=== PATIENT | female | born 2005 | race Caucasian/White ===

== ENCOUNTER 2023-07-04 13:47 | Outpatient (CLI) | payer OTHER, SELFPAY ==
[2023-07-04 19:27] LABS: Chlamydia DNA Amplified* Not Detected (No Detected); GC DNA Amplified* Not Detected (No Detected)
== END 2023-07-04 13:48 | disposition home or self-care (01) ==
PROVIDERS: PCP Family Medicine; Visit Provider Obstetrics & Gynecology
DX: R10.2 Pelvic and perineal pain (principal); N39.0 Urinary tract infection, site not specified; B96.20 Unspecified Escherichia coli [E. coli] as the cause of diseases classified elsewhere; Z11.3 Encounter for screening for infections with a predominantly sexual mode of transmission
CPT/HCPCS: 87086; 87186; 87491; 87591

== ENCOUNTER 2023-07-06 15:46 | Outpatient (CLI) | payer OTHER, SELFPAY ==
--- NOTE | 2023-07-06 16:00 | CRLHL7_ITS ---
For Patients: As a result of the Century Cures Act, medical imaging exams and procedure reports are released immediately into your electronic medical record. You may view this report before your referring provider. If you have questions, please contact your health care provider. INDICATION: ABNORMAL UTERINE BLEEDING COMPARISON: none TECHNIQUE: 2D aaron scale and color Doppler images were acquired of the pelvis using a transabdominal and transvaginal approach. FINDINGS: Sonographic images demonstrate a normal size and smooth outer contour of the uterus. Uterus measures 8.0 cm in length by 3.3 cm in AP diameter by 4.1 cm in transverse dimension. The myometrium has a normal uniform echotexture. The endometrial lining appears normal and measures 3 mm in composite thickness. The right ovary measures 4.8 x 2.5 x 4.1 cm in size and the left ovary measures 3.7 x 2.1 x 3.2 cm. The ovaries demonstrate normal arterial and venous blood flow on color Doppler analysis. Simple cyst right ovary measuring 3.9 x 2.1 x 3.6 cm. There are no suspicious fluid collections within the cul-de-sac. IMPRESSION: Simple right ovarian cyst measures 3.9 cm. Endometrial thickness 3 millimeters. Dictated by Davi Avendaño MD @ 07/07/2023 10:17:29 AM (Electronically Signed)
== END 2023-07-06 15:47 | disposition home or self-care (01) ==
LOC: US 15:48
PROVIDERS: PCP Family Medicine; Visit Provider Obstetrics & Gynecology
DX: N93.9 Abnormal uterine and vaginal bleeding, unspecified (principal); N83.201 Unspecified ovarian cyst, right side; R10.2 Pelvic and perineal pain
CPT/HCPCS: 76830; 76856

== ENCOUNTER 2023-07-20 14:14 | Outpatient (CLI) | payer OTHER, SELFPAY | END 2023-07-20 14:15 | disposition home or self-care (01) | LOC: NFLDREF 07-27 15:17 | PROVIDERS: PCP Family Medicine; Referring Provider Family Medicine; Visit Provider Obstetrics & Gynecology | DX: N93.9 Abnormal uterine and vaginal bleeding, unspecified (principal); Z13.220 Encounter for screening for lipoid disorders; Z13.1 Encounter for screening for diabetes mellitus | CPT/HCPCS: 80061; 82947; 83498; 83525; 84146; 84270; 84402; 84403; 84443 ==

== ENCOUNTER 2023-09-30 22:52 | Emergency (ER) | payer OTHER, SELFPAY ==
[2023-09-30 22:57] VITALS: BP 112/68; PULSE 90; RESP 20; TEMP 36.3; O2SAT 100; BMI 22.1
--- NOTE | 2023-09-30 23:24 | ED_ITS ---
HPI - General Adult General Chief complaint: Head Injury/Pain Stated complaint: head injury Time Seen by Provider: 09/30/23 23:25 History of Present Illness HPI narrative: Pt is coming in for evaluation of headache and nausea. Pt was hit by the corner of the door today while at work. Pt reported she is sensitive to the light and noise and is having brain fog. She feels that the headache is similar to the one she got it from her last concussion. Her last concussion was in 2020. She had 2 concussions in that year that were 4 months apart. 18-year-old young woman presenting to the emergency department concern of headache in history of concussion. Shortly before arrival to the emergency department was at work and caring a sign in from the back and was struck in the back of the head by the door. Apparently it was quite a crack of noise. Since that time has been feeling in a fog. Has increasing headache. Does have a history of concussions last in apparently 2020. Ultimately did need to receive treatment from the vestibular clinic locally. Has tended apparently to be hit in the back of the head. I believe the last injury was while doing a back bend in her room and her arms gave way and she fell striking the back of her head on the floor. 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 She is quite nauseated now. Has not vomited. She is sensitive to light and sound. Feels a waviness of sorts to her vision and suspects herself to be discoordinated somewhat. Does not recount loss of consciousness but does not recall precisely where in the back of the head she was hit. Underlying history also of migraines with sumatriptan available. Has also had cochlear hydrops. Related Data Home Medications Medication Instructions Recorded Confirmed bupropion HCl 300 mg 24 hr tablet, 300 mg PO DAILY 07/04/23 07/04/23 extended release dextroamphetamine-amphetamine 5 mg 1 tab PO BID 07/04/23 07/04/23 tablet dextroamphetamine-amphetamine ER 5 cap PO 07/04/23 07/04/23 mg 24hr capsule,extend release fluoxetine 40 mg capsule 40 mg PO DAILY 07/04/23 07/04/23 Allergies Allergy/AdvReac Type Severity Reaction Status Date / Time No Known Drug Allergies Allergy Verified 07/04/23 09:36 Review of Systems Status of ROS: Reports: 6 or more systems reviewed and unremarkable except as noted in History and below [facility] PFS Family History (Updated 07/25/23 @ 16:13 by Ros Ross) Paternal Grandmother Colon cancer Father High blood pressure High cholesterol Diabetes Uncle Diabetes Grandfather Diabetes Social History Smoking Status: Never smoker Do you use any of these nicotine containing products: None Second hand tobacco smoke exposure: No How often do you have a drink containing alcohol: never AUDIT-C Alcohol total score: 0 Non-prescribed substance use: denies use service: No Exam Narrative: Exam Narrative: Accompanied here by father. Pleasant. Carefully casually groomed. Speaking fluidly. Pupils are equal and briskly reactive; in the dimmer light are dilated to 7 mm. Extraocular movements are intact. Do not appreciate nystagmus. External ear canals are free of fluid. He had appears to be atraumatic. Hard to reproduce this area of pain. Neck is supple and nontender. Back nontender. Intact point to point. Appears to feel a little woozy with this. Negative Romberg's. Transitions out of bed a little gingerly. Tandem gait is notably unsteady but she is able to catch herself, maintains the line. Const: Vital Signs, click to edit/add: Vital Signs - 24 hr 09/30/23 22:57 Temperature 97.4 F L Pulse Rate [Left P ulse Oximeter] 90 Respiratory Rate 20 Blood Pressure [Le ft Upper Arm] 112/68 Pulse Oximetry 100 Oxygen Delivery Me thod Room Air Documenting provider has reviewed patient's vital signs: yes Course Vital Signs Vital signs: Initial Vital Signs Temperature 97.4 F L 09/30/23 22:57 Temperature Source Temporal Artery Scan 09/30/23 22:57 Pulse Rate 90 09/30/23 22:57 Pulse Rhythm Regular 09/30/23 22:57 Pulse Strength 3+ Normal 09/30/23 22:57 Respiratory Rate 20 09/30/23 22:57 Blood Pressure 112/68 09/30/23 22:57 Blood Pressure Mean 82 09/30/23 22:57 Blood Pressure Position Sitting 09/30/23 22:57 Pulse Oximetry 100 09/30/23 22:57 Oxygen Delivery Method Room Air 09/30/23 22:57 Vital Signs Temperature 97.4 F L 09/30/23 22:57 Pulse Rate 90 09/30/23 22:57 Respiratory Rate 20 09/30/23 22:57 Blood Pressure 112/68 09/30/23 22:57 Pulse Oximetry 100 09/30/23 22:57 Oxygen Delivery Method Room Air 09/30/23 22:57 Temperature 97.4 F L 09/30/23 22:57 Pulse Rate 90 09/30/23 22:57 Respiratory Rate 20 09/30/23 22:57 Blood Pressure 112/68 09/30/23 22:57 Pulse Oximetry 100 09/30/23 22:57 Oxygen Delivery Method Room Air 09/30/23 22:57 Medications Administered Medications: Discontinued Medications Generic Name Dose Route Start Last Admin Trade Name Steven PRN Reason Stop Dose Admin Diazepam 3 mg 09/30/23 23:40 10/01/23 00:09 Diazepam 5 Mg/Ml Inj IV 09/30/23 23:41 3 mg ONCE ONE Administration Sodium Chloride 1,000 mls @ 1,000 mls/hr 09/30/23 23:40 10/01/23 00:56 0.9 % Sodium Chloride 1000 Ml IV 10/01/23 00:39 Infused .Q1H ONE Infusion Ketorolac Tromethamine 30 mg 09/30/23 23:40 10/01/23 00:07 Ketorolac 30 Mg/Ml Inj IVP 09/30/23 23:41 30 mg ONCE ONE Administration Ondansetron HCl 4 mg 09/30/23 23:40 10/01/23 00:06 Ondansetron 2 Mg/Ml Inj IVP 09/30/23 23:41 4 mg ONCE ONE Administration Medical Decision Making MDM Narrative Medical decision making narrative: Does appear to be experiencing symptoms consistent with concussion. I would suspect this is more noticeable in someone who has already had concussions. I think head imaging available here is quite low yield. Discussed and agreed. Would like symptom relief from headache and nausea. IV will be established. Normal saline hydration along with Zofran and ketorolac and some Valium for the vestibular symptoms. I am anticipating handoff at change of shift pending improvement in symptoms. On my reassessment is mildly improved. I do not think has seen full affected medications and still has about a 3rd of IV fluids remaining. Reassessed once more at end of IV fluid. Still with significant headache. Has some brow component that would associate with her migraines. Discussed next options for pain really and settled on low-dose ketamine infusion. Had discussed also use of dexamethasone though while with migraine history, uncertain of indication in the setting of concussion. Discharge Plan Discharge Clinical Impression: Concussion, Closed head injury Patient Disposition: Home w/ Parent or Adult Condition: Improved Additional Instructions: Do focus on hydration. Rest. These symptoms can be created I think sometimes by a some degree of trigger point impact but I do certainly have concern, as do you, that a concussion is present. Particularly important would be to avoid activities where you might hit your head again, at least over the next month. Signs or symptoms of a concussion might be nausea or headache upon exertion which can also be an indication to back off that level of activity and reassess in a week.? Concussion can also be represented by smoldering nausea or smoldering headache, difficulty with concentration, mood lability, general somnolence, sense of persistent fog or dizziness/lightheadedness.? If these symptoms are becoming apparent and continuing beyond 7-10 days, be re-evaluated for further recommendations. I think you will likely end up having to return to this vestibular clinic or some other concussion rehabilitation; locally also is the [facility] through [place]. Be seen sooner for marked increase in persistent headache, new weakness, repeated vomiting, worsening vision, markedly worse dizziness. Zofran from [facility]. Can take up to 800 mg of ibuprofen or up to 1000 mg of acetaminophen per dose. Alternative to the ibuprofen might be up to 500 mg of naproxen 2 times daily. Prescriptions: No Action fluoxetine 40 mg capsule 40 mg PO DAILY dextroamphetamine-amphetamine 5 mg tablet 1 tab PO BID dextroamphetamine-amphetamine 5 mg capsule,extended release 24hr PO bupropion HCl 300 mg tablet extended release 24 hr 300 mg PO DAILY Follow Up/Referrals: Luzma Hinton MD [Primary Care Provider] - Stand Alone Forms: [employer] Info Instructions
[2023-10-01] MEDS: 0.9 % SODIUM CHLORIDE 1000 ml 1,000 ML IV (00:05)
[2023-10-01] MEDS: ONDANSETRON 2 MG/ML inj 4 MG IVP (00:06)
[2023-10-01] MEDS: KETOROLAC 30 MG/ML inj IVP (00:07)
[2023-10-01] MEDS: diazePAM 5 MG/ML inj 3 MG IV (00:09)
--- OUTSIDE RECORDS SUMMARY | 2023-10-01 00:14 | XMS_ITS | Clinical Summary ---
Author Name Unknown Organization [facility] Address [place], [place] [address] Care Team Providers Care Oracle Solutions Architect Name Role Phone Luzma Hinton MD Primary Care Provider Cyrus Barclay GYNAECOLOGICAL ONCOLOGIST Unavailable [phone] Allergies Active Allergy Reactions Criticality Noted Date Comments House Dust *Unknown 08/18/2022 congestion, fever, red eyes. 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 Give at minimum 2hrs apart. Max Dose: 200mg per 24hrs. 10 Tablet 3 06/16/2022 Active buPROPion (WELLBUTRIN XL) 300 mg Extended-Release tabletIndications:Att ention deficit hyperactivity disorder (ADHD), unspecified ADHD type,Major depressive disorder, recurrent episode, mild (HC) Take 1 Tablet (300 mg) by mouth once daily. 90 Tablet 1 08/14/2023 Active dextroamphetamine-amp hetamine (Adderall XR) 5 mg Extended-Release capsuleIndications:At tention deficit hyperactivity disorder (ADHD), unspecified ADHD type Take 1-2 Capsules (5-10 mg) by mouth every morning. 60 Capsule 10/16/2023 Active FLUoxetine (PROZAC) 40 mg capsuleIndications:Ge neralized anxiety disorder with panic attacks,Major depressive disorder, recurrent episode, mild (HC) Take 1 Capsule (40 mg) by mouth once daily. 90 Capsule 1 08/14/2023 Active dextroamphetamine-amp hetamine (Adderall XR) 5 mg Extended-Release capsuleIndications:At tention deficit hyperactivity disorder (ADHD), unspecified ADHD type Take 1-2 Capsules (5-10 mg) by mouth every morning 60 Capsule 08/16/2023 Active dextroamphetamine-amp hetamine (AdderalL) 5 mg tabletIndications:Att ention deficit hyperactivity disorder (ADHD), unspecified ADHD type Take 1-2 tablets daily in the afternoon 60 Tablet 10/16/2023 Active dextroamphetamine-amp hetamine (ADDERALL) 5 mg tabletIndications:Att ention deficit hyperactivity disorder (ADHD), unspecified ADHD type Take 1-2 tablets daily in the afternoon. 60 Tablet 08/16/2023 Active Active Problems Problem Noted Date Diagnosed Date Generalized anxiety disorder with panic attacks 07/31/2023 Major depressive disorder, recurrent, moderate 0 07/31/2023 Meniere's disease, left ear 08/31/2020 Attention deficit hyperactivity disorder (ADHD) 10/09/2018 Hypermetropia, bilateral 05/31/2018 Migraine 01/16/2018 Asthma 01/23/2017 Encounters Date Type Department Care Team Description 08/29/2023 11:30 AM CDT Telemedicine [facility] [address] [place] [phone] Cyrus Barclay LICSW [facility] 08/29/2023 Travel 08/14/2023 9:30 AM CDT Telemedicine [facility] [address] [place] [address] Darlin Rodriguez, [place] Medication Management; [facility] ([place]) 08/14/2023 Travel 08/08/2023 9:30 AM CDT Telemedicine [facility] [address] [place] [address] [facility]/08/[facility]23 Travel 07/31/2023 9:30 AM PIPELINER Telemedicine [facility] [address] [place] [phone] Cyrus Barclay, [facility] Mental Health Intake 07/31/2023 Travel 07/06/2023 Orders Only [facility] Scanner 1 scan: (1-Ord) [facility] PELVIC TA AND TV , 07/06/2023 from Last 3 Months Immunizations Name Administration Dates Next Due COVID-19 Vaccine Spikevax (M oderna 50mcg/0.5mL) 12YO+ [id number] Formula PF 04/05/2023 COVID-19 vaccine (Pfizer-Bio NTech 30mcg/0.3mL) PF, MDV 05/17/2021,08/16/2020 DTaP 02/12/2007,03/09/2004 [id number] (Pediarix) 2003,2003,1 HIB PRP-OMP (PedvaxHIB) 03/09/2004,2003, HPV 9 (Gardasil 9) 07/24/2015,02/18/2015 Hepatitis A (Peds) 01/14/2014,03/04/2013 Human Papilloma Virus Vaccine 01/01/2015 Inactivated Polio Vaccine 02/12/2007 Influenza A (H1N1), Live Intranasal 06/23/2009,1 07/26/2008 Influenza Virus, Unspecified 02/26/2021, 03/04/2013,02/17/2012,04/08 Influenza, IIV3 (Age >=3 years) 05/26/20 10,02/12/2009,03/03/2008,03/24,04/08/2006,07/12/2004,03/20/2004 Influenza, IIV4 04/05/2023, 2,03/10/2021,02/03,01/30/2019,02/20/2018,03/03/2017 ,02/13/2016,02/18/2015,03/15/2014 MMR 02/16/2004 MMRV 02/12/2007 Meningococcal Vaccine (Menactra) 01/14/2014 Meningococcal Vaccine (Menveo) 01/30/2019 Pneumococcal Conj 20-valent (Prevnar 20) 02/21/2022 Pneumococcal conj 7-Valent (Prevnar 7) 1 ,2003,2003,03/11 Tdap 01/14/2014 Tuberculin Skin Test, Unspecified 2020,12/29/2020,02/17/2012,06/14 Varicella Vaccine 02/16/2004 Social History Tobacco Use Types Packs/Day Years Used Date Smoking Tobacco: Never Smokeless Tobacco: Never Tobacco Cessation:Counseling Given: Not Answered Alcohol Use Standard Drinks/Week Comments Yes 0 (1 standard drink = 0.6 oz pur e alcohol) 1-2 drinks in a 2 week period. PHQ-2 Answer Date Recorded PHQ-2 TOTAL SCORE 2 08/29/2023 Social Connections Answer Date Recorded Frequency of Communication with Friends and Fami ly 0 01/23/2023 Financial Resource Strain Answer Date R ecorded Difficulty of Paying Living Expenses 3 01/23/2023 Difficulty of Paying Living Expenses Not on file 01/23/2023 Food Insecurity Answer Date Recorded Worried About Running Out of Food in the Last Ye ar 1 01/23/2023 Transportation Needs Answer Date Record ed Lack of Transportation (Medical) 1 01/23/2023 Housing Stability Answer Date Recorded Unable to Pay for Housing in the Last Year 1 01/23/2023 Sex and Gender Information Value Date Recorded Sex Assigned at Not on file Gender Identity Not on file Sexual Orientation Not on file Obstetrics History Last Filed Vital Signs Vital Sign Reading Time Taken Comments Blood Pressure 117/64 06/12/2023 11:05 AM PIPELINER Pulse 69 06/12/2023 11:05 AM PIPELINER Temperature - - Respiratory Rate - - Oxygen Saturation 98% 06/16/2022 3:12 PM PIPELINER Inhaled Oxygen Concentration - - Weight 56.2 kg (124 lb) 06/12/2023 11:05 AM PIPELINER Height 160 cm (5' 3) 06/12/2023 11:05 AM PIPELINER Body Mass Index 21.97 06/12/2023 11:05 AM PIPELINER Plan of Treatment Upcoming Encounters Date Type Department Care Team (Late st Contact Info) Description 10/16/2023 9:30 AM CDT Telemedicine [facility] [address] [place] [id number] Darlin Rodriguez, [place] [address] [facility] [address] [place] [address] Health Maintenance Due Date Last Done Comments Well Child Check for age 3-20 12/08/2005 HIV for age 15-65 2018 Chlamydia for age 16-24 05/09/2020 05/09/20 (Verified in Care Everywhere or Patient Record) Hepatitis C screening for age 18-79 2021 Tetanus booster 01/15/2024 01/14/2014 Influenza for age 9-49 01/28/2024 , 02/21/2022, 03/10/2021, Additional history exists BMI (ht and wt on same day) for age 18+ 06/12/2024 06/12/2023, 01/23/2023, 06/16/2022 Depression screening for age 12+ 08/28/2024 08/29/2023, 08/14/2023, 08/08/2023, Additional history exists Tdap Completed 01/14/2014 HPV series for age 9-26 Completed 07/24/19 16, 02/18/2015, 01/01/2015 Meningococcal series for age 11-21 Completed 01/30/2019, 01/14/2014 Pneumococcal series for age 6-64 Aged Out 02/21/2022, 03/09/2004, 2003, Additional history exists No longer eligible based on patient's age to complete this topic COVID-19 vaccine series Completed 04/05/20, 02/21/2022, 05/17/2021, Additional history exists Procedures Procedure Name Priority Date/Time Associated Diagnosis Comments SCAN-ULTRASOUND REPORT 07/06/2023 12:00 AM PIPELINER from Last 3 Months Results * SCAN-ULTRASOUND REPORT (07/06/2023 12:00 AM PIPELINER) Anatomical Region Laterality Modality Other Scanner OTHER from Last 3 Months Care Teams Oracle Solutions Architect Relationship Specialty Start Date End Date Luzma Hinton MD [address] [place] [address] PCP - General Family Practice 06/20/22 Cyrus Barclay, [facility] [address] [place] [address] Mental Health Provider Machine Rope Maker 09/19/23
[2023-10-01] MEDS: KETAMINE 50 MG/0.5 ML 20 MG in 0.9 % SODIUM CHLORIDE 100 ml 100 ML 200.4 MG IVPB (01:08)
== END 2023-10-01 01:48 | disposition home or self-care (01) ==
PROVIDERS: Emergency Provider Family Medicine; PCP Family Medicine
DX: S06.0X0A Concussion without loss of consciousness, initial encounter (principal); W22.8XXA Striking against or struck by other objects, initial encounter
CPT/HCPCS: 96365; 96375; 99284; J1885; J2405; J3360; J3490; J7030

== ENCOUNTER 2024-02-16 01:11 | Emergency (ER) | payer OTHER, SELFPAY ==
[2024-02-16 01:29] VITALS: BP 117/65; PULSE 103; RESP 16; TEMP 37.7; O2SAT 98
[2024-02-16 02:16] LABS: PCR FLU A Negative PCR FLU A (Negative); SARS PCR* POSITIVE SARS-CoV-2 (Negative)
[2024-02-16 02:17] LABS: PCR FLU B Negative PCR FLU B (Negative); PCR RSV Negative PCR RSV (Negative)
--- NOTE | 2024-02-16 02:20 | ED_ITS ---
HPI - General Adult General Chief complaint: Headache/Migraine Stated complaint: headache Time Seen by Provider: 02/16/24 02:20 History of Present Illness HPI narrative: patient has headache and a fever or 100 at home. body aches and a stiff neck. started around 1700. has not taken any Tylenol or ibuprofen for the symptoms. 19-year-old woman presenting to the emergency department concern of headache. Measured a temperature to 100. Generally with body aches in some stiffness in her neck. Symptoms began 7 or 8 hours ago this last evening. No particular exposures noted. No rashes. No vomiting. No diarrhea. Related Data Home Medications ?Medication ?Instructions ?Recorded ?Confirmed bupropion HCl 300 mg 24 hr tablet, 300 mg PO DAILY 07/04/23 07/04/23 extended release dextroamphetamine-amphetamine 5 mg 1 tab PO BID 07/04/23 07/04/23 tablet dextroamphetamine-amphetamine ER 5 cap PO 07/04/23 07/04/23 mg 24hr capsule,extend release fluoxetine 40 mg capsule 40 mg PO DAILY 07/04/23 07/04/23 Allergies Allergy/AdvReac Type Severity Reaction Status Date / Time No Known Drug Allergies Allergy Verified 07/04/23 09:36 Review of Systems Status of ROS: Reports: 6 or more systems reviewed and unremarkable except as noted in History and below PFSH PFSH Family History Paternal Grandmother Colon cancer Father High blood pressure High cholesterol Diabetes Uncle Diabetes Grandfather Diabetes Social History Smoking Status: Never smoker Do you use any of these nicotine containing products: None Second hand tobacco smoke exposure: No How often do you have a drink containing alcohol: never AUDIT-C Alcohol total score: 0 Non-prescribed substance use: denies use service: No Exam Narrative: Exam Narrative: Pleasant. Of good energy but generally seems uncomfortable. Cranial nerves 2- 12 intact. No significant nasopharyngeal congestion. Oropharynx is moist not particularly erythematous. Neck is supple without lymphadenopathy. Sore neck and back musculature generally. Lungs are clear. Heart in elevated rate but regular rhythm. She is not demonstrating any meningeal signs other than headache. Abdomen soft. Skin without apparent rash. Well-perfused. Const: Vital Signs, click to edit/add: Vital Signs - 24 hr 02/16/24 01:29 Temperature 99.8 F H Pulse Rate [Pulse Oximeter] 103 H Respiratory Rate 16 Blood Pressure [Ri ght Upper Arm] 117/65 Pulse Oximetry 98 Oxygen Delivery Me thod Room Air Documenting provider has reviewed patient's vital signs: yes Course Vital Signs Vital signs: Initial Vital Signs Temperature 99.8 F H 02/16/24 01:29 Temperature Source Temporal Artery Scan 02/16/24 01:29 Pulse Rate 103 H 02/16/24 01:29 Respiratory Rate 16 02/16/24 01:29 Blood Pressure 117/65 02/16/24 01:29 Blood Pressure Mean 82 02/16/24 01:29 Blood Pressure Position Sitting 02/16/24 01:29 Pulse Oximetry 98 02/16/24 01:29 Oxygen Delivery Method Room Air 02/16/24 01:29 Vital Signs Temperature 99.8 F H 02/16/24 01:29 Pulse Rate 103 H 02/16/24 01:29 Respiratory Rate 16 02/16/24 01:29 Blood Pressure 117/65 02/16/24 01:29 Pulse Oximetry 98 02/16/24 01:29 Oxygen Delivery Method Room Air 02/16/24 01:29 Temperature 99.8 F H 02/16/24 01:29 Pulse Rate 103 H 02/16/24 01:29 Respiratory Rate 16 02/16/24 01:29 Blood Pressure 117/65 02/16/24 01:29 Pulse Oximetry 98 02/16/24 01:29 Oxygen Delivery Method Room Air 02/16/24 01:29 Medications Administered Medications: Discontinued Medications Generic Name Dose Route Start Last Admin Trade Name Freq PRN Reason Stop Dose Admin Diphenhydramine HCl 12.5 mg 02/16/24 02:31 02/16/24 02:38 Diphenhydramine 50 Mg/Ml Inj IVP 02/16/24 02:32 12.5 mg ONCE ONE Administration Sodium Chloride 1,000 mls @ 1,000 mls/hr 02/16/24 02:31 02/16/24 03:28 0.9 % Sodium Chloride 1000 Ml IV 02/16/24 03:30 Infused .Q1H ONE Infusion Ketorolac Tromethamine 30 mg 02/16/24 02:31 02/16/24 02:38 Ketorolac 30 Mg/Ml Inj IVP 02/16/24 02:32 30 mg ONCE ONE Administration Medical Decision Making MDM Narrative Medical decision making narrative: I would presume viral etiology to myalgias and headache. Can certainly offered treatment/symptom relief. Would screen for COVID influenza considering community prevalence. No red flags otherwise and I do think meningitis unlikely. Rather abrupt onset consistent with viral etiology. Does not seem to have degree of symptoms that I might associate with presenting time for mosquito or tick vector borne illnesses. Would like relief of her symptoms somewhat. Ordered for typical treatment including IV hydration for headache pending swab c ollection results. COVID was positive. I think this is a good explanation for her symptoms. Overall improved with treatment as above. No comorbidities for which to recommend Paxlovid. Medical Records Medical records reviewed: Yes I reviewed the patient's medical records Lab Data Lab results reviewed: Yes I reviewed the patient's lab results Labs: Lab Results 02/16/24 Range/Units 01:28 SARS-CoV-2 (PCR) POSITIVE SARS-CoV-2 A (Negative) Influenza Type A (PCR) Negative PCR FLU A (Negative) Influenza Type B (PCR) Negative PCR FLU B (Negative) RSV (PCR) Negative PCR RSV (Negative) Discharge Plan Discharge Clinical Impression: COVID, Headache Patient Disposition: Home w/ Parent or Adult Condition: Improved Instructions: COVID-19 (Coronavirus Disease 2019) (ED) Additional Instructions: Focus on hydration. While you are not feeling well, try to do some stretching daily. Can take up to 600 mg of ibuprofen or up to 850 mg of acetaminophen per dose. Alternative to the ibuprofen might be up to 375 mg of naproxen 2 times daily. Returns/be seen for worsening and persistent shortness of breath, uncontrolled pain, intractable vomiting or diarrhea or any other symptom of which you have concern. Recommended quarantine is 10 days from 1st day of symptoms and/or 24 hours no fever and negative antigen testing Prescriptions: No Action fluoxetine 40 mg capsule 40 mg PO DAILY dextroamphetamine-amphetamine 5 mg tablet 1 tab PO BID dextroamphetamine-amphetamine 5 mg capsule,extended release 24hr PO bupropion HCl 300 mg tablet extended release 24 hr 300 mg PO DAILY Follow Up/Referrals: Luzma Hinton MD [Primary Care Provider] - Stand Alone Forms: [employer] Info Instructions
--- OUTSIDE RECORDS SUMMARY | 2024-02-16 02:36 | XMS_ITS | Clinical Summary ---
Author Organization [employer] [facility] Address [place], [place] [address] Care Team Providers Care Concrete Truck Driver Name Role Phone Luzma Hinton MD Primary Care Provider Cyrus Barclay YARN POLISHING MACHINE OPERATOR Unavailable [phone] Allergies Active Allergy Reactions Criticality Noted Date [...] in the afternoon. 60 Tablet 08/16/2023 Active melatonin 10 mg tab Take 1-2 Tablets (10-20 mg) by mouth. 10/16/2023 Active Active Problems Problem Noted Date Diagnosed Date Generalized anxiety disorder with panic attacks 07/31/2023 Major depressive disorder, recurrent, moderate 0 07/31/2023 Meniere's disease, left ear 08/31/2020 Attention deficit hyperactivity disorder (ADHD) 10/09/2018 Hypermetropia, bilateral 05/31/2018 Migraine 01/16/2018 Asthma 01/23/2017 Encounters Date Type Department Care Team Description 11/27/2023 3:00 PM CDT Ancillary Procedure [facility] [address] [place] [address] 11/27/2023 2:35 PM CDT Telemedicine [facility] [address] [place] [phone] Michelle Rascon NP Hand Injury (Right hand pain DOI 11/25/2023) 11/27/2023 Telephone [facility] [place] [address] [phone] Deanna William Appointment 11/27/2023 Travel 11/16/2023 2:20 PM CDT Office Visit [facility] [address] [place] [address] Luzma Hinton MD [facility] ([facility] 09/30/23 headache) 11/16/2023 Travel from Last 3 Months Immunizations Name Administration Dates Next Due COVID-19 VACCINE SPIKEVAX (M ODERNA 50MCG/0.5ML) 12YO+ PFS 04/05/2023 COVID-19 vaccine (Pfizer-Bio NTech 30mcg/0.3mL) PF, MDV 05/17/2021,08/16/2020 DTaP 02/12/2007,03/09/2004 [id number] (Pediarix) 2003,2003,1 HIB PRP-OMP (PedvaxHIB) 03/09/2004,2003, HPV 9 (Gardasil 9) 07/24/2015,02/18/2015 Hepatitis A (Peds) 01/14/2014,03/04/2013 Human Papilloma Virus Vaccine 01/01/2015 Inactivated Polio Vaccine 02/12/2007 Influenza A (H1N1), Live Intranasal 06/23/2009,1 07/26/2008 Influenza Virus, Unspecified 02/26/2021, 03/04/2013,02/17/2012,04/08 Influenza, IIV3 (Age >=3 years) 05/26/20 10,02/12/2009,03/03/2008,03/24,04/08/2006,07/12/2004,03/20/2004 Influenza, IIV4 04/05/2023,,03/10/2021,02/03,01/30/2019,02/20/2018,03/03/2017 ,02/13/2016,02/18/2015,03/15/2014 MENINGOCOCCAL VACCINE 2 VIAL 2MO-55YO (MENVEO) 01/30/2019 MMR 02/16/2004 MMRV 02/12/2007 Meningococcal Vaccine (Menactra) 01/14/2014 Pneumococcal Conj 20-valent (Prevnar 20) 02/21/2022 Pneumococcal [...] of Communication with Friends and Fami ly Not on file 01/28/2024 Financial Resource Strain Answer Date R ecorded [...] Sign Reading Time Taken Comments Blood Pressure 96/60 11/16/2023 2:38 PM CDT Pulse 66 11/16/2023 2:38 PM CDT Temperature - - Respiratory Rate - - Oxygen Saturation 99% 11/16/2023 2:38 PM CDT Inhaled Oxygen Concentration - - Weight 57.2 kg (126 lb) 11/16/2023 2:38 PM CDT Height 160 cm (5' 3) 06/12/2023 11:05 AM PROGRAM PLANNER Body Mass Index - - Plan of Treatment Health Maintenance Due Date Last Done Comments HIV for age 15-65 2018 Chlamydia for age 16-24 05/09/2020 05/09/20 19 (Verified in Care Everywhere or Patient Record) Hepatitis C screening for age 18-79 2021 Pap test for age 21-65 01/09/2024 Tetanus booster 01/15/2024 01/14/2014 Influenza for age [...] Procedure Name Priority Date/Time Associated Diagnosis Comments XR HAND 3 VIEWS RIGHT STAT 11/27/2023 3:29 PM CDT Hand pain, right from Last 3 Months Results * XR HAND 3 VIEWS RIGHT (11/27/2023 3:29 PM CDT) Anatomical Region Laterality Modality HANDS, HAND R Computed Radiogr aphy 11/27/2023 3:39 PM CDT Narrative 11/27/2023 3:39 PM CDT For Patients: ??As a result of the Century Cures Act, medical imaging exams and procedure reports are released immediately into your electronic medical record. ??You may view this report before your referring provider. ??If you have questions, please contact your health care provider. Indication: Right hand pain Technique: Three views of the right hand Comparison: None Findings/impression : No acute fracture or malalignment. The osseous structures are unremarkable in appearance. The soft tissues are unremarkable. Dictated by Marquez Tipton MD @ 11/27/2023 3:39:49 PM (Electronically Signed) Procedure Note Marquez Tipton MD - 11/27/2023 For Patients: As a result of the Cures Act, medical imagingexams and procedure reports are released immediately into your electronicmedical record. You may view this report before your referring provider.If you have questions, please contact your health care provider. Indication: Right hand pain Technique: Three views of the right hand Comparison: None Findings/impression : No acute fracture or malalignment. The osseous structures are unremarkablein appearance. The soft tissues are unremarkable. Dictated by Marquez Tipton MD @ 11/27/2023 3:39:49 PM (Electronically Signed) Michelle Navarro from Last 3 Months Care Teams Concrete Truck Driver Relationship Specialty Start Date End Date Luzma Hinton MD [address] [place] [address] PCP - General Family Practice 06/20/22 Cyrus Barclay, [facility] [address] [facility] [address] Mental Health Provider Senior Laboratory Technician 09/19/23
[2024-02-16] MEDS: diphenhydrAMINE 50 MG/ML inj 12.5 MG IVP (02:38)
[2024-02-16] MEDS: 0.9 % SODIUM CHLORIDE 1000 ml 1,000 ML IV (02:38)
[2024-02-16] MEDS: KETOROLAC 30 MG/ML inj IVP (02:38)
== END 2024-02-16 03:51 | disposition home or self-care (01) ==
PROVIDERS: Emergency Provider Family Medicine; PCP Family Medicine
DX: U07.1 COVID-19 (principal); R51.9 Headache, unspecified
CPT/HCPCS: 87631; 96374; 96375; 99283; 99284; J1200; J1885; J7030

== ENCOUNTER 2024-05-08 15:56 | Outpatient (CLI) | payer OTHER, SELFPAY | END 2024-05-08 15:57 | disposition home or self-care (01) | LOC: NFLDREF 05-09 12:02 | PROVIDERS: PCP Family Medicine; Referring Provider Family Medicine; Visit Provider Obstetrics & Gynecology | DX: R39.9 Unspecified symptoms and signs involving the genitourinary system (principal) | CPT/HCPCS: 87086 ==